=== PATIENT | male | born 1950 | race Caucasian/White ===

== ENCOUNTER → 2016-12-27 | Outpatient (CLI) | payer OTHER ==
[~2016-12-27] MED LIST: ADVAIR 500-501 EACH IH; ALBUTEROL17 GM INH; AMARYL1 MG PO; ASPIRIN EC81 M1 PO; AVODART0.5 MG PO; CORDARONE200 M1 PO; COUMADIN5 MG PO; FLOMAX0.4 M1 PO; FUROSEMIDE40 MG PO; GLUCOPHAGE500 M1 PO; GLUCOPHAGE500 MG PO; HYDRALAZINE HCL25 MG PO; LOVENOX80 MG/0.8 INJ; LYRICA75 MG PO; METOPROLOL SUCC50 MG PO; METOPROLOL TAR25 MG PO; MYSOLINE50 M1 PO; OMEPRAZOLE40 M1 PO; PRIMIDONE250 MG; PRINIVIL20 M1 PO; PROAIR HFA8.5 GM IH; PROAIR HFA8.5 GM INH; PROAIR RESPICL90 MCG INH; SIMVASTATIN20 MG PO; SINGULAIR PO; SPIRIVA18 MCG; SPIRIVA18 MCG INH; SPIRIVA18 MCG PO; TOPROL XL PO; TOPROL XL50 MG PO; TRIAMCINOLONE AC1 GM EXT; XARELTO20 MG PO; ZESTRIL30 MG PO; ZOCOR20 MG PO
--- NOTE | ~2016-12-27 | CT137 ---
[facility] A Service of [facility] RADIOLOGY TEXT RESULTS PATIENT: BALDEV HICKS SR LOCATION: [facility] : 48 UNIT #: [id number] AGE: [address]: Silvia Gore MD SEX: M ORDER DR: [id number] [facility] [address] [facility]. [place], [place] [address] [id number] MR#: [id number] Acc #: [id number] NAME: BALDEV HICKS SR : 1950 SEX: M STUDY DATE/TIME: 12/27/2016 10:14 UNIT: [facility] ROOM: STUDY DESCRIPTION: CT Lung Screening annual Attending Physician: Silvia Gore M.D. Ordering Physician: Silvia Gore M.D. Primary Care Physician: Silvia Gore M.D. MEDICAL IMAGING REPORT This report is preliminary unless electronic signature is present EXAM Low-dose lung cancer screening chest CT INDICATIONS 66-year-old male with 60-pack/year total smoking history. Former smoker quit 1.[address] of the chest was performed without contrast using low-dose lung cancer screening protocol. Coronal and sagittal reformatted images were obtained. This CT exam was performed with one or more of the following radiation dose reduction techniques: automatic exposure control, adjustment of mA and/or kV according to patient size, and iterative reconstruction. COMPARISON Comparison is made with 11/14/2015. FINDINGS Emphysema. There is a stable micronodule in the right lower lobe on image 124. There is stable scarring in the lung apices. No new nodules. No suspicious lymphadenopathy. Coronary artery calcifications. Small hiatal hernia. No pleural effusion. Limited imaging of the upper abdomen demonstrates a stable right renal cyst, partially imaged. The bone windows are unremarkable. IMPRESSION 1. Emphysema. 2. Stable right lower lobe micronodule. No new nodules. ACR Lung-RADS category II. [facility] A Service of [facility] RADIOLOGY TEXT RESULTS PATIENT: BALDEV HICKS SR LOCATION: [facility] : 48 UNIT #: [id number] AGE: [address]: Silvia Gore MD SEX: M ORDER DR: Followup annual low-dose lung cancer screening chest CT in 1 year. Dictated by... Adalid Landa M.D. THIS IS AN ELECTRONICALLY VERIFIED REPORT Adalid Landa M.D. at 12/27/2016 4:05 PM NANCY/cisco TD: 12/27/2016 14:19 JOB #: [id number] MEDICAL IMAGING REPORT Page 1 of 1 COPY
== END | disposition home or self-care (01) ==
LOC: CCAT 09:52
DX: Z87.891 Personal history of nicotine dependence (principal); J43.9 Emphysema, unspecified; R91.1 Solitary pulmonary nodule
CPT/HCPCS: G0297

== ENCOUNTER 2017-02-21 12:32 | Observation (INO) | payer OTHER ==
--- NOTE | ~2017-02-21 | CR72 ---
[facility] A Service of [facility] RADIOLOGY TEXT RESULTS PATIENT: BALDEV HICKS SR LOCATION: [facility] : 48 UNIT #: [id number] AGE: [address]: Marina Davis MD SEX: M ORDER DR: [id number] [facility] [address] [facility] [place], [place] [address] [id number] I MR#: [id number] #: [id number] NAME: BALDEV HICKS SR : 1950 SEX: M STUDY DATE/TIME: 02/21/2017 15:55 UNIT: [facility] ROOM: [facility] STUDY DESCRIPTION: CR Chest Single View Portable Attending Physician: Jordi Davis M.D. Ordering Physician: Monae Flores M.D. Primary Care Physician: Silvia Gore M.D. MEDICAL IMAGING REPORT This report is preliminary unless electronic signature is present EXAM Portable chest 02/21 COMPARISON 05/11/2013. HISTORY Chest pain. Shortness of breath. Symptoms since 02/21. FINDINGS AP portable view is obtained. The heart size is normal. Lungs show chronic interstitial disease. There is ectasia and tortuosity of the thoracic aorta with atherosclerotic calcification. Postop changes are present in the left apex. CONCLUSION COPD. No acute process in the chest. Dictated by... Manuelito Looney M.D. THIS IS AN ELECTRONICALLY VERIFIED REPORT aMnuelito Looney M.D. at 02/22/2017 9:32 AM GARRICK/damien TD: 02/21/2017 22:42 JOB #: [id number] MEDICAL IMAGING REPORT Page 1 of 1 COPY
--- NOTE | ~2017-02-21 | ST ---
Unit #: [id number] #: [id number] Patient: BALDEV HICKS SR [id number] [address] [place], [place] [address] [id number] MR#: [id number] NAME: BALDEV HICKS SR : 1950 SEX: M STUDY DATE/TIME: 02/23/2017 UNIT: [facility] ROOM: 577 STUDY DESCRIPTION: EKG portion of Lexiscan Attending Physician: Jordi Davis M.D. Primary Care Physician: Silvia Gore M.D. CARDIOLOGY REPORT REASON FOR EXAM Chest pain. DESCRIPTION Baseline EKG shows sinus rhythm with left ventricular hypertrophy, nonspecific ST changes. 0.4 mg of Lexiscan was injected per protocol, followed by Cardiolite. The patient was asymptomatic. He has had some exaggeration of baseline inferior lateral changes but nothing diagnostic of ischemia. No sustainable arrhythmias or ectopy were noted. Test was stopped due to protocol completion. IMPRESSION 1. Negative EKG portion of Lexiscan Cardiolite. 2. No sustainable arrhythmias. 3. Asymptomatic during stress. 4. Please correlate with Cardiolite imaging. Dictated by... Julia Diego APRN for Muriel Skelton TD: 02/23/2017 11:03 JOB #: [id number] CARDIOLOGY REPORT Page 1 of 1 X CARDIOLOGY REPORT
--- NOTE | ~2017-02-21 | DS ---
Unit #: [id number] #: [id number] Patient: BALDEV HICKS SR [id number] [address] [place], [place] [address] [id number] I MR#: [id number] NAME: BALDEV HICKS SR ROOM: 577 Age: 66 Sex: M Admission Date: 02/22/2017 : 1950 Discharge Date: 02/23/2017 Attending Physician: Jordi Davis M.D. Primary Care Physician: Silvia Gore M.D. DISCHARGE SUMMARY DISCHARGE DIAGNOSES 1. Atypical chest pain, most likely chest wall pain, stress test negative for ischemia with normal left ventricular function. 2. History of nonischemic cardiomyopathy with improved left ventricular function. 3. Ecchymosis of left toes secondary to peripheral edema, resolving. 4. Venous Doppler negative for deep venous thrombosis. 5. History of alcohol use. 6. Diabetes. 7. Hypertension. 8. History of atrial fibrillation and cardioversion in the past. 9. History of supraventricular tachycardia ablation in 2008. DISCHARGE MEDICATIONS 1. Albuterol inhaler 2 puffs q.4 hours p.r.n. for shortness of breath. 2. Triamcinolone 15 g topically daily as directed. 3. Flomax 0.4 mg at bedtime. 4. Spiriva 18 mcg inhaled daily. 5. Xarelto 20 mg daily. 6. Lyrica 75 mg at bedtime. 7. Primidone 125 mg b.i.d. 8. Metoprolol succinate 25 mg daily. 9. Simvastatin 20 mg at bedtime. 10. Hydralazine 25 mg b.i.d. 11. Omeprazole 40 mg at bedtime. HISTORY AND HOSPITAL COURSE The patient is a 66-year-old male who was admitted with chest pain. His chest x-ray was negative. Emphysema was noted on the CT of the chest. Cardiac enzymes were negative x3. His thyroid was mildly low, and he will follow up as outpatient with his primary care physician for this. He has a history of atrial fibrillation. His Xarelto was continued at his home dose, as well as his Toprol-XL. His EKG had some left ventricular hypertrophy and nonspecific ST abnormality. Patient was going to have a stress test, but he had had caffeine, and the test had to be changed to two-day protocol. Today, he completed the stress portion of the stress test that was negative for ischemia with increased gut uptake and diaphragmatic attenuation artifact. No wall motion abnormalities. Probably no infarct and no significant inferior wall ischemia. Echocardiogram showed normal wall motion and EF of 65% to 70% with grade 1 diastolic dysfunction and no valvular heart disease. The patient was seen by Dr. Carroll due to unilateral swelling and ecchymosis Unit #: [id number] #: [id number] Patient: KURT OCONNOR,BALDEV Boss across his third through fifth toes. A Doppler was negative for DVT. Swelling resolved and ecchymosis is improving and did not recommend any further evaluation. CONDITION AT DISCHARGE Stable. DISCHARGE INSTRUCTIONS Patient will be discharged home today to follow up with his primary care doctor in a week and Dr. Wise in four to six weeks. Dictated by... Julia Diego APRN for Muriel Skelton/ramón TD: 02/23/2017 16:06 JOB #: [id number] DISCHARGE SUMMARY Page 1 of 1 X X DISCHARGE SUMMARY
--- NOTE | ~2017-02-21 | CT16 ---
[facility] A Service of [facility] RADIOLOGY TEXT RESULTS PATIENT: BALDEV HICKS SR LOCATION: [facility] 577-01 : 48 UNIT #: [id number] AGE: [address]: Marina Davis MD SEX: M ORDER DR: [id number] [facility] [address] [facility]. [place], [place] [address] [id number] I MR#: [id number] Acc #: [id number] NAME: BALDEV HICKS SR : 1950 SEX: M STUDY DATE/TIME: 02/21/2017 17:10 UNIT: [facility] ROOM: [facility] STUDY DESCRIPTION: CT Angio Chest for PE Attending Physician: Jordi Davis M.D. Ordering Physician: Eduardo Méndez M.D. Primary Care Physician: Silvia Gore M.D. MEDICAL IMAGING REPORT This report is preliminary unless electronic signature is present EXAM CT chest PE protocol. HISTORY Cystic lung disease. Chest pain, dyspnea, left lower extremity swelling for the past 2 days. COMPARISON STUDIES Comparison CT chest 12/27/2016 FINDINGS Axial images were performed through the chest following IV contrast. 3-D coronal and sagittal reconstructed images reviewed at a workstation. This CT exam was performed with one or more of the following radiation dose reduction techniques: automatic exposure control, adjustment of mA and/or kV according to patient size, and iterative reconstruction. FINDINGS The patient demonstrates severe diffuse lung disease with predominately cystic changes within the mid and upper lung zones most likely reflecting centrilobular emphysema but also a component of paraseptal emphysema. Upper lobe scarring. Mild tracheobronchomegaly compatible underlying emphysema. The small nodular opacity in the lateral aspect of the right lower lobe seen on the screening lung CT is unchanged. No evidence of pulmonary embolus. No aneurysm. Heart size within normal limits. Mild aortic atherosclerotic changes. Extensive coronary artery calcifications. Small hiatal hernia. Visualized upper abdomen unremarkable. Thoracic inlet appears normal. IMPRESSION [facility] A Service of [facility] RADIOLOGY TEXT RESULTS PATIENT: BALDEV HICKS SR LOCATION: [facility] 577-01 : 48 UNIT #: [id number] AGE: [address]: Marina Davis MD SEX: M ORDER DR: 1. Moderate to severe diffuse lung disease with pulmonary parenchymal changes compatible with underlying emphysema most prominent within the mid and upper lung zones. 2. Stable small parenchymal nodules or opacity right lower lobe unchanged from prior CTs dating back to October 2015. 3. No evidence of pulmonary embolus. Dictated by... Vaishali Landa M.D. THIS IS AN ELECTRONICALLY VERIFIED REPORT Vaishali Landa M.D. at 02/22/2017 9:13 PM Carlos TD: 02/22/2017 00:19 JOB #: [id number] MEDICAL IMAGING REPORT Page 1 of 1 COPY
--- NOTE | ~2017-02-21 | CO ---
Unit #: [id number] #: [id number] Patient: BALDEV HICKS SR [id number] [address] [place], [place] [address] [id number] I MR#: [id number] NAME: BALDEV HICKS SR ROOM: 577 Age: 66 Sex: M Admission Date: 02/22/2017 : 1950 Attending Physician: Jordi Davis M.D. Primary Care Physician: Silvia Gore M.D. Consultation Date: 02/23/2017 CONSULTATION REPORT CHIEF COMPLAINT Discoloration of left toes. HISTORY OF PRESENT ILLNESS Mr. Baldev Hicks is a 66-year-old gentleman, who was admitted through the emergency room with chest pain. He also had severe swelling of his left leg. He states that the skin on his left foot was very tight and he thought that the skin on his toes was going to rupture. His swelling has gotten better since admission to the hospital, but he still has some residual discomfort on the toes of his left foot. He denies any pain, numbness, tingling, or other complaints involving his toes. He states that his toes feel fine and do not bother him at all. He has no history of deep vein thrombosis. He believes that his leg swelling is due to problems with his heart disease. He is normally able to walk as far as he would like without any thigh or calf muscle discomfort to suggest vasculogenic claudication. He denies pain of his feet at rest. He has never had ulceration or gangrene of his feet. PAST MEDICAL HISTORY Nonischemic cardiomyopathy, chronic systolic heart failure, atrial fibrillation, type 2 diabetes mellitus, hypertension, hyperlipidemia, and COPD. MEDICATIONS Hydralazine 25 mg p.o. b.i.d., ProAir Rescue inhaler one puff p.o. q.4 hours p.r.n., omeprazole 40 mg p.o. daily, simvastatin 20 mg p.o. daily at bedtime, Spiriva 18 mcg inhaler daily, Lyrica 75 mg p.o. daily at bedtime, Flomax 0.4 mg p.o. daily at bedtime, primidone 125 mg p.o. q.12 hours, Xarelto 20 mg p.o. daily, Toprol-XL 25 mg p.o. daily, and triamcinolone cream to lower extremities daily. ALLERGIES Intravenous contrast. SOCIAL HISTORY He lives in [place]. He smokes two packs of cigarettes per day. He has a history of alcohol abuse. FAMILY HISTORY No significant health issues in either parent. Unit #: [id number] #: [id number] Patient: BALDEV HICKS SR REVIEW OF SYSTEMS Positive for chest pain, shortness of breath, and lower extremity edema. Otherwise, 10-point review of systems is negative. PHYSICAL EXAMINATION VITAL SIGNS: Temperature 98.2, pulse 71, respirations 18, and blood pressure 141/79. GENERAL APPEARANCE: Well-developed white male. Pleasant and cooperative. Fully alert and oriented. Good mood. Appropriate affect. Fair historian. No acute distress. HEENT: Extraocular movements intact. Oral mucosa is pink and moist. NECK: No cervical bruits. No JVD. LUNGS: Decreased breath sounds bilaterally. No use of accessory respiratory muscles. HEART: Irregular rate and rhythm. No murmurs. No extra heart sounds. ABDOMEN: Soft, nondistended, and nontender. No palpable masses. No palpable hepatomegaly or splenomegaly. EXTREMITIES: Hands and feet are pink and warm. No edema of the right leg. Trace edema of the left ankle. Femoral, popliteal, dorsalis pedis, and posterior tibial pulses are easily palpable on both sides. There is purplish ecchymosis involving the dorsum of the left third, fourth, and fifth toes. DIAGNOSTIC STUDIES IMAGING STUDIES: He had a venous Doppler study performed on 02/21/2017, which I reviewed. That study shows no evidence of deep vein thrombosis. IMPRESSION Discoloration of the toes on the left foot. I suspect that he experienced some ecchymosis of the skin related to his severe swelling. He states that his toes are totally asymptomatic and improving. PLAN My recommendation would be to observe the situation for now. He has no obvious symptoms to suggest vasculitis. He has no evidence of peripheral artery disease or venous insufficiency. Dictated by... Angel Carroll M.D. PO/reynold TD: 02/23/2017 13:16 JOB #: [id number] CONSULTATION REPORT Page 1 of 1 X Self,Angel Dunlap MD X CONSULTATION REPORT
--- NOTE | ~2017-02-21 | HP ---
Unit #: [id number] #: [id number] Patient: BALDEV HICKS SR [id number] [address] [address] [id number] I MR#: [id number] NAME: BALDEV HICKS SR ROOM: 577 Age: 66 Sex: M Admission Date: 02/21/2017 : 1950 Attending Physician: Jordi Davis M.D. Primary Care Physician: Silvia Gore M.D. HISTORY AND PHYSICAL ADDENDUM ALLERGIES IV contrast. HOME MEDICATIONS Hydralazine 25 mg b.i.d.; ProAir rescue inhaler q.4 hours one puffs; omeprazole 40 mg daily; simvastatin 20 mg at bedtime; Spiriva 18 mcg inhaler daily; Lyrica 75 mg at bedtime; Flomax 0.4 mg at bedtime; primidone 125 mg q.12 hours; Xarelto 20 mg daily; Toprol XL 25 mg a day; triamcinolone cream 15 mg to bilateral lower extremities daily. Dictated by Julia Diego APRN for Muriel Skelton/henrique TD: 02/22/2017 12:37 JOB #: [id number] HISTORY AND PHYSICAL Page 1 of 1 X X HISTORY AND PHYSICAL
--- NOTE | ~2017-02-21 | HP ---
Unit #: [id number] #: [id number] Patient: BALDEV HICKS SR [id number] [address] [place], [place] [address] [id number] I MR#: [id number] NAME: BALDEV HICKS SR ROOM: 577 Age: 66 Sex: M Admission Date: 02/21/2017 : 1950 Attending Physician: Jordi Daivs M.D. Primary Care Physician: Silvia Gore M.D. HISTORY AND PHYSICAL REASON FOR ADMISSION Chest pain and lower extremity edema. 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 He has a history of nonischemic cardiomyopathy in the past. He also has a history of atrial fibrillation and is on Xarelto at home. He also has a history of SVT ablation back in 2008. His last stress test was at [facility] in 2012 that showed a nonischemic cardiomyopathy with EF of 40% to 45%. Patient has chronic systolic heart failure. He has risk factors such as diabetes, hypertension, and hyperlipidemia. The patient has been in his usual state of health, except he has been feeling a little tired lately. He awoke yesterday morning with a sharp shooting pain in the chest that he describes as 5 bolts of lightening. He was short of breath and then happened to notice swelling in his left lower extremity and purple discoloration on the lateral toes. The patient has not had any symptoms of exertion. He is feeling better now and the swelling has gone down in his leg. CT of the chest was negative for PE and just showed emphysema. Venous Doppler was negative for DVT and chest x-ray was unremarkable except for emphysema changes. PAST MEDICAL HISTORY 1. Significant for chronic systolic heart failure. 2. Nonischemic cardiomyopathy. 3. Atrial fibrillation. 4. Cardioversion. 5. SVT ablation in 2008. 6. Diabetes. 7. Hypertension. 8. Hyperlipidemia. 9. History of negative stress test in 2008 and here a few years earlier. 10. COPD SOCIAL HISTORY Patient has a history of alcohol abuse. He smokes two packs of cigarettes a day. No illicit drug use. FAMILY HISTORY Noncontributory to cardiac status. REVIEW OF SYSTEMS Complains of chest pain, shortness of breath, weakness and fatigue, as well as lower extremity edema. No fever, chills, cough, nausea, vomiting, diarrhea, dizziness, lightheadedness, headache, or change in visual field or syncope. All other review of systems is negative. Unit #: [id number] #: [id number] Patient: BALDEV HICKS SR PHYSICAL EXAMINATION GENERAL: The patient is awake, alert, in no apparent distress. Color is pink. Skin is warm and dry. VITAL SIGNS: Afebrile, heart rate 70, blood pressure 149/84. HEENT: Pupils equal, round, and reactive. NEUROLOGIC: No focal motor or sensory deficits. CHEST: Respirations are regular, unlabored at rest. Bilateral breath sounds have good air entry through all lung oswald. No crackles rubs, or wheezes are heard. HEART: S1 and S2. Regular rate and rhythm. No murmurs, rubs or gallops. ABDOMEN: Soft, nontender, nondistended. Positive bowel sounds x4 quadrants. No ascites noted. EXTREMITIES: No edema noted to the right lower extremity. Left lower extremity with trace to 1+ edema with purple discoloration on the third through fifth toes. DIAGNOSTIC STUDIES IMAGING STUDIES: CT of the chest showing emphysema but no evidence of pulmonary embolus. Venous Doppler negative for DVT. LABORATORY STUDIES: White blood cell count 8.4, hemoglobin 16, hematocrit 47.9, platelet count 183. Sodium 136, potassium 3.7, chloride 97, CO2 32, BUN 14, creatinine 0.9, glucose 192. TSH 0.02 and troponin negative x2. IMPRESSION 1. Atypical chest pain. 2. Possible vasculitis of the left lower extremity. 3. Chronic systolic heart failure appears compensated. 4. History of cardiomyopathy with EF last noted at 40% to 45% in 2012. 5. History of AFib on Xarelto. 6. History of SVT ablation in 2008. 7. Diabetes. 8. Hypertension. 9. Hyperlipidemia. PLAN Will ask Dr. Fernandes to see for possible vasculitis of the left lower extremity. Will plan on Cardiolite stress test today. He is ruled out for ID. Will also check a 2D echo with Doppler to reassess LV function. Dictated by Julia Diego APRN for Tye Gibson M.D. Janette TD: 02/22/2017 12:06 JOB #: [id number] Unit #: [id number] #: [id number] Patient: BALDEV HICKS SR HISTORY AND PHYSICAL Page 1 of 1 X X HISTORY AND PHYSICAL
--- NOTE | ~2017-02-21 | EKG ---
PATIENT: BALDEV HICKS UNIT #: [id number] Ventricular Rate: 80 BPM Atrial Rate: 80 BPM P-R Interval: 154 ms QRS Duration: 112 ms Q-T Interval: 438 ms QTC Calculation(Bezet): 505 ms P [place]: 76 degrees Calculated R [place]: 29 degrees Calculated T [place]: 57 degrees Diagnosis Line: Normal sinus rhythm Diagnosis Line: Incomplete right bundle branch block Diagnosis Line: Nonspecific ST abnormality Diagnosis Line: Prolonged QT Diagnosis Line: Abnormal ECG Diagnosis Line: When compared with ECG of 21-FEB-2017 12:39, Diagnosis Line: (unconfirmed) Diagnosis Line: No significant change was found Diagnosis Line: Confirmed by GRIS STEWART MD ([id number]) on Diagnosis Line: 02/22/2017 3:07:12 PM INTERPRETING MD: DANNY
--- NOTE | ~2017-02-21 | TH ---
Unit #: [id number] #: [id number] Patient: BALDEV HICKS SR [id number] [address] [address] [id number] I MR#: [id number] NAME: BALDEV HICKS SR : 1950 SEX: M STUDY DATE/TIME: UNIT: [facility] ROOM: 577 STUDY DESCRIPTION: Cardiolite imaging Attending Physician: Jordi Davis M.D. Primary Care Physician: Silvia Gore M.D. CARDIOLOGY REPORT EXAM Cardiolite imaging. PROCEDURE Using technetium 99m labeled Cardiolite rest and stress SPECT images were obtained. Multiple SPECT images were obtained in various views, including horizontal and vertical long axis and short axis views of the left ventricle. Images were obtained by gated SPECT method. The patient was administered 9.06 mCi of Cardiolite at rest. The patient was administered 29.9 mCi of Cardiolite after Lexiscan infusion was completed. On the stress images there is a medium sized area of moderate decreased isotope activity inferiorly. The rest images showed normal perfusion. Comparing rest and stress images, a medium sized area of stress induced ischemia involving the inferior wall of the left ventricle cannot be ruled out. The left ventricular ejection fraction is calculated to be 61%. There is no focal wall motion abnormality seen. CONCLUSION 1. A medium sized area of stress induced ischemia involving the inferior wall of the left ventricle cannot be ruled out. 2. The left ventricular ejection fraction is calculated to be 61%. 3. There is no focal wall motion abnormality seen. 4. Abnormal Lexiscan Cardiolite stress test. Clinical correlation is requested. Dictated by... Muriel Stewart TD: 02/24/2017 09:55 JOB #: [id number] Unit #: [id number] #: [id number] Patient: BALDEV HICKS SR CARDIOLOGY REPORT Page 1 of 1 X Joy Anguiano MD <ELECTRONICALLY SIGNED> 03/22/17 1420 CARDIOLOGY REPORT
--- NOTE | ~2017-02-21 | EKG ---
PATIENT: BALDEV HICKS UNIT #: [id number] Ventricular Rate: 78 BPM Atrial Rate: 78 BPM P-R Interval: 158 ms QRS Duration: 114 ms Q-T Interval: 412 ms QTC Calculation(Bezet): 469 ms P [place]: 77 degrees Calculated R [place]: 54 degrees Calculated T [place]: 80 degrees Diagnosis Line: Normal sinus rhythm Diagnosis Line: Incomplete right bundle branch block Diagnosis Line: Nonspecific ST abnormality Diagnosis Line: Abnormal ECG Diagnosis Line: Diagnosis Line: Confirmed by GRIS STEWART MD ([id number]) on Diagnosis Line: 02/22/2017 2:58:29 PM INTERPRETING MD: DANNY
--- NOTE | ~2017-02-21 | US85 ---
[facility] A Service of [facility] RADIOLOGY TEXT RESULTS PATIENT: BALDEV HICKS SR LOCATION: [facility] 577 : 48 UNIT #: [id number] AGE: [address]: Marina Davis MD SEX: M ORDER DR: [id number] [facility] [address] [place], [place] [address] [id number] MR#: [id number] Acc #: [id number] NAME: BALDEV HICKS SR : 1950 SEX: M STUDY DATE/TIME: 02/21/2017 16:34 UNIT: [facility] ROOM: [facility] STUDY DESCRIPTION: LE Veins Unilat or Ltd Stdy Attending Physician: Jordi Davis M.D. Ordering Physician: Eduardo Méndez M.D. Primary Care Physician: Silvia Gore M.D. MEDICAL IMAGING REPORT This report is preliminary unless electronic signature is present EXAM Left lower extremity venous ultrasound. HISTORY Left leg swelling for 2 days. Recent fall. TECHNIQUE Venous ultrasound examination of the left lower extremity was performed using grayscale, spectral Doppler and color flow Doppler imaging. FINDINGS The examination is negative. There is no evidence of left lower extremity deep venous thrombus from the groin to the lower calf. Visualized greater saphenous vein is also patent. IMPRESSION Negative examination. No evidence of left lower extremity DVT. Dictated by... Gilson Correia M.D. THIS IS AN ELECTRONICALLY VERIFIED REPORT Gilson Correia M.D. at 03/01/2017 10:33 PM RAY/trav TD: 02/21/2017 23:40 JOB #: [id number] MEDICAL IMAGING REPORT Page 1 of 1 COPY
[~2017-02-21 12:32] MED LIST changes: -OMEPRAZOLE40 M1 PO; -PRIMIDONE250 MG; -PROAIR RESPICL90 MCG INH; -SPIRIVA18 MCG; -TOPROL XL50 MG PO; -TRIAMCINOLONE AC1 GM EXT
[2017-02-21 13:44] LABS: BASOPHIL# 0.1 X10e3 (0-0.3); BASOPHIL% 0.7 % (0-2.5); EOSINOPHIL% 0.4 % (0.0-7.0); HEMATOCRIT 47.9 % (38.0-50.0); LYMPHOCYTE# 1.2 X10e3 (1.0-3.5); LYMPHOCYTE% 14.1 % (17.0-45.0); MEAN CORPUSCULAR HEMOGLOBIN 31.3 PG (28-34); MEAN CORPUSCULAR HGB CONC 33.3 g/dL (30-36); MEAN PLATELET VOLUME 9.8 FL (6.5-11.5); MONOCYTE# 0.7 X10e3 (0-1.0); MONOCYTE% 7.8 % (3.0-12.0); NEUTROPHIL# 6.4 X10e3 (1.5-7.1); PLATELET COUNT 183 X10e3 (140-420); RED BLOOD COUNT 5.09 X10e (3.90-5.60); RED CELL DISTRIBUTION WIDTH 14.1 % (11.0-15.5); WHITE BLOOD COUNT 8.4 X10e3 (4.0-10.5)
[2017-02-21 13:53] LABS: POC - CKMB 2.5 ng/mL (0.0-7.9); POC - TROPONIN <0.05 ng/mL (<=0.05)
[2017-02-21 13:56] LABS: DIFF IND NO
[2017-02-21 14:09] LABS: ALBUMIN SERUM 4.2 g/dL (3.5-5.0); BILIRUBIN, DIRECT 0.1 mg/dL (0.0-0.2); BILIRUBIN,INDIRECT 0.8 mg/dL (0.0-0.9); BILIRUBIN,TOTAL 0.9 mg/dL (0.2-2.0); BUN/CREATININE RATIO 15.55; CALCIUM SERUM 9.2 mg/dL (8.4-10.2); CREATININE SERUM 0.9 mg/dL (0.6-1.4); GLOM FILT RATE Estimated 87.5 mL/min (>60); POTASSIUM 3.7 mmol/L (3.5-5.1); PROTEIN TOTAL SERUM 7.4 g/dL (6.0-8.3)
[2017-02-21 16:38] LABS: PARTIAL THROMBOPLASTIN TIME 28.4 SECONDS (23.5-31.3)
[2017-02-21 16:52] LABS: POC - CKMB 3.3 ng/mL (0.0-7.9); POC - TROPONIN <0.05 ng/mL (<=0.05)
[2017-02-21 18:32] LABS: POC - CKMB 2.8 ng/mL (0.0-7.9); POC - TROPONIN <0.05 ng/mL (<=0.05)
[2017-02-21] MEDS ORDERED: LYRICA75 MG PO (21:33)
[2017-02-21] MEDS ORDERED: FLOMAX0.4 M1 PO (21:35)
[2017-02-21] MEDS ORDERED: PRIMIDONE250 MG (21:36)
[2017-02-21] MEDS ORDERED: XARELTO20 MG PO (21:37)
[2017-02-21] MEDS ORDERED: TOPROL XL50 MG PO (21:38)
[2017-02-21] MEDS ORDERED: HYDRALAZINE HCL25 MG PO (21:39)
[2017-02-21] MEDS ORDERED: PROAIR RESPICL90 MCG INH (21:40)
[2017-02-21] MEDS ORDERED: OMEPRAZOLE40 M1 PO (21:41)
[2017-02-21] MEDS ORDERED: SPIRIVA18 MCG (21:43)
[2017-02-21] MEDS ORDERED: SIMVASTATIN20 MG PO (21:43)
[2017-02-21] MEDS ORDERED: TRIAMCINOLONE AC1 GM EXT (21:45)
[2017-02-22 00:56] LABS: %MB 2.9 % (0.0-4.0); MB 3.2 ng/ml
[2017-02-22 07:18] LABS: %MB 3.5 % (0.0-4.0); MB 3.4 ng/ml
== END 2017-02-23 16:35 | disposition home or self-care (01) ==
LOC: CED 12:32 → C5C 20:29 → CED 20:29 → C5C 02-22 14:30
PROVIDERS: Emergency Medicine; Internal Medicine Cardiovascular Disease
DX: R07.89 Other chest pain (principal); R60.0 Localized edema; E11.9 Type 2 diabetes mellitus without complications; I11.0 Hypertensive heart disease with heart failure; I50.22 Chronic systolic (congestive) heart failure; E78.5 Hyperlipidemia, unspecified; Z79.01 Long term (current) use of anticoagulants; F17.210 Nicotine dependence, cigarettes, uncomplicated; R58 Hemorrhage, not elsewhere classified; J43.9 Emphysema, unspecified
CPT/HCPCS: 36415; 71010; 71275; 78452; 80048; 80076; 82550; 82553; 82947; 83880; 84484; 85025; 85610; 85730; 93005; 93017; 93306; 93971; 94640; 94664; 94760; 96374; 96375; 99291; A9500; G0378; J1200; J2785; J2930; Q9967